=== PATIENT | male | born 1965 | race African-American/Black ===

== ENCOUNTER 2016-07-26 15:09 | Emergency (ER) | payer MEDICAID, OTHER ==
[~2016-07-26] VITALS: Ht 175.3 cm; Wt 100.0 kg
[~2016-07-26 15:09] MED LIST: ABILIFY; RISPERDAL; TRAZADONE
[2016-07-26 16:00] VITALS: BP 144/83
[2016-07-26] MEDS ORDERED: TETANUS, DIPHTHERIA, PERTUSSIS VAC/PF 0.5ML (>7YR OLD) IM ONE (16:00)
[2016-07-26] MEDS ORDERED: LORAZEPAM 1MG TABLET PO ONE (16:00)
[2016-07-26] MEDS ORDERED: HYDROCODONE/ACETAMINOPHEN 5/325MG TABLET PO ONE (16:00)
[2016-07-26] MEDS ORDERED: LIDOCAINE HCL 1%/EPI 1:200,000 30 ML VIAL MC ONE (16:00)
[2016-07-26] MEDS ORDERED: BACITRACIN ZINC OINT UDPKT TOP ONE (16:00)
== END 2016-07-26 17:24 | disposition home or self-care (01) ==
LOC: ER 15:51
DX: S51.812A Laceration without foreign body of left forearm, initial encounter (principal); Z98.890 Other specified postprocedural states; W25.XXXA Contact with sharp glass, initial encounter; Y93.89 Activity, other specified; Y92.89 Other specified places as the place of occurrence of the external cause; Y99.8 Other external cause status
CPT/HCPCS: 12004; 90471; 90715; 99283

== ENCOUNTER 2016-08-21 07:08 | Emergency (ER) | payer MEDICAID ==
[~2016-08-21] VITALS: Ht 175.3 cm; Wt 82.0 kg
[2016-08-21 07:37] VITALS: BP 140/86
[2016-08-21] MEDS ORDERED: BACITRACIN ZINC OINT UDPKT TOP ONE (15:15)
== END 2016-08-21 17:30 | disposition home or self-care (01) ==
LOC: ER 13:09
DX: Z48.02 Encounter for removal of sutures (principal); T81.4XXA Infection following a procedure, initial encounter; L08.89 Other specified local infections of the skin and subcutaneous tissue
CPT/HCPCS: 73090; 99284; X7700; Z7610

== ENCOUNTER 2016-12-22 11:14 | Emergency (ER) | payer MEDICAID ==
[~2016-12-22] VITALS: Ht 170.2 cm; Wt 100.0 kg
[2016-12-22 11:43] VITALS: BP 132/84
[2016-12-22] MEDS ORDERED: KETOROLAC 60MG/2ML VIAL IM ONE (11:45)
== END 2016-12-22 12:19 | disposition home or self-care (01) ==
LOC: ER 11:20
DX: M25.512 Pain in left shoulder (principal); F20.9 Schizophrenia, unspecified; F17.200 Nicotine dependence, unspecified, uncomplicated
CPT/HCPCS: 93005; 96372; 99283; J1885

== ENCOUNTER 2017-12-19 14:43 | Emergency (ER) | payer MEDICAID ==
[~2017-12-19] VITALS: Ht 175.3 cm; Wt 106.0 kg
[2017-12-19] MEDS ORDERED: KETOROLAC 30MG/ML VIAL IM ONE (17:15)
[2017-12-19 18:08] VITALS: BP 122/77
== END 2017-12-19 18:09 | disposition home or self-care (01) ==
LOC: ER 17:46
DX: G89.29 Other chronic pain (principal); M54.9 Dorsalgia, unspecified; F20.9 Schizophrenia, unspecified; F17.200 Nicotine dependence, unspecified, uncomplicated
CPT/HCPCS: 96372; 99283; J1885

== ENCOUNTER 2018-07-02 20:43 | Emergency (ER) | payer MEDICAID ==
[~2018-07-02] VITALS: Ht 175.3 cm; Wt 72.0 kg
[2018-07-03] MEDS ORDERED: KETOROLAC 60MG/2ML VIAL IM ONE (00:15)
[2018-07-03 02:03] VITALS: BP 125/92
== END 2018-07-03 02:04 | disposition home or self-care (01) ==
LOC: ER 20:43
DX: S02.2XXA Fracture of nasal bones, initial encounter for closed fracture (principal); J45.909 Unspecified asthma, uncomplicated; F20.9 Schizophrenia, unspecified; Z79.899 Other long term (current) drug therapy; V43.62XA Car passenger injured in collision with other type car in traffic accident, initial encounter; Y93.89 Activity, other specified; Y92.89 Other specified places as the place of occurrence of the external cause; Y99.8 Other external cause status
CPT/HCPCS: 70486; 96372; 99284; J1885

== ENCOUNTER 2019-03-05 21:16 | Emergency (ER) | payer MEDICAID ==
[~2019-03-05] VITALS: Ht 175.3 cm; Wt 109.0 kg
[2019-03-05] MEDS ORDERED: KETOROLAC 60MG/2ML VIAL IM ONE (23:15)
[2019-03-05] MEDS ORDERED: MORPHINE SULFATE 10 MG/ML CPJ IM ONE (23:15)
[2019-03-05] MEDS ORDERED: METHOCARBAMOL 750MG TABLET PO SCH (23:15)
[2019-03-06 01:05] VITALS: BP 114/77
== END 2019-03-06 02:15 | disposition home or self-care (01) ==
LOC: ER 21:16
DX: M62.838 Other muscle spasm (principal); J06.9 Acute upper respiratory infection, unspecified; J45.909 Unspecified asthma, uncomplicated; F20.9 Schizophrenia, unspecified; F17.200 Nicotine dependence, unspecified, uncomplicated
CPT/HCPCS: 71045; 72040; 93005; 96372; 99283; J1885; J2270

== ENCOUNTER 2021-02-23 07:40 | Emergency (ER) | payer MEDICAID ==
[~2021-02-23] VITALS: Ht 177.8 cm; Wt 90.0 kg
[2021-02-23] MEDS ORDERED: ACETAMINOPHEN WITH CODEINE 300/30MG TABLET PO ONE (08:00)
[2021-02-23] MEDS ORDERED: T3 PO (09:36)
[2021-02-23] MEDS ORDERED: IBUP-2028 PO (09:36)
[2021-02-23 11:45] VITALS: BP 161/89
== END 2021-02-23 12:13 | disposition home or self-care (01) ==
LOC: ER 07:50
DX: S82.442A Displaced spiral fracture of shaft of left fibula, initial encounter for closed fracture (principal); J45.909 Unspecified asthma, uncomplicated; F20.9 Schizophrenia, unspecified; V03.99XA Pedestrian with other conveyance injured in collision with car, pick-up truck or van, unspecified whether traffic or nontraffic accident, initial encounter; Y93.55 Activity, bike riding; Y92.89 Other specified places as the place of occurrence of the external cause
CPT/HCPCS: 29515; 73590; 73610; 99284; Z7610

== ENCOUNTER 2021-03-10 09:42 | Emergency (ER) | payer MEDICAID ==
[~2021-03-10] VITALS: Ht 175.3 cm; Wt 70.0 kg
[~2021-03-10 09:42] MED LIST changes: +IBUP-2028 PO; +T3 PO
[2021-03-10 09:45] VITALS: BP 170/100
== END 2021-03-10 11:52 | disposition home or self-care (01) ==
LOC: ER 09:42
DX: S82.492A Other fracture of shaft of left fibula, initial encounter for closed fracture (principal); J45.909 Unspecified asthma, uncomplicated; F20.9 Schizophrenia, unspecified; X58.XXXA Exposure to other specified factors, initial encounter; Y93.9 Activity, unspecified; Y92.9 Unspecified place or not applicable; Z98.890 Other specified postprocedural states
CPT/HCPCS: 29515; 73600; 99283